=== PATIENT | male | born 1990 | race Caucasian/White ===

== ENCOUNTER 2018-11-02 12:19 | Day surgery (SDC) | payer SELFPAY ==
[~2018-11-02 12:19] MED LIST: Bupivacaine 0.25%/EPINEPHrine 1:200,000 10 ML SDV INJECT ONE; Lactated Ringers 1,000 ML IV SCH; ceFAZolin 2 GM in Premix Bag 1 BAG IV ONE
[2018-11-02] MEDS ORDERED: Bupivacaine 25%/EPINEPHrine/PF 30 ML ONE (12:30)
[2018-11-02] MEDS ORDERED: Midazolam 1 MG/ML 2 ML SDV ONE (13:01)
[2018-11-02] MEDS ORDERED: Propofol 200 MG/20 ML SDV ONE (13:02)
--- NOTE | 2018-11-02 13:22 | PCM.PREANE ---
Preanesthetic Assessment - Anesthesia/Transfusion/Family Hx Anesthesia History: Prior Anesthesia Without Reaction (appy and Right upper ( lung) lobectomy due to trauma in 2011.) Family History of Anesthesia Reaction: No Transfusion History: No Prior Transfusion(s) - Review of Systems General: No Symptoms (overweight) Pulmonary: No Symptoms (smokes e cigs. quit smoking cigareettes 2010 after lung lobectomy. Denies any pulmonary symptoms or SOB or asthma or emphysema. Says physical activity is NOT limited by sob.) Cardiovascular: No Symptoms Gastrointestinal: No Symptoms Neurological: No Symptoms Other: Reports: None (drinks 2-3 beers per night. Obese.) - Physical Assessment NPO Status Date: 11/02/18 NPO Status Time: 08:00 (one can [place]) Pulse: 56 O2 Sat by Pulse Oximetry: 98 Respiratory Rate: 16 Blood Pressure: 149/71 Temperature: 37.3 C Vital Signs: Last Vital Signs Temp 37.3 C 11/02/18 13:16 Pulse 56 L 11/02/18 13:16 Resp 16 11/02/18 13:16 BP 149/71 H 11/02/18 13:16 Pulse Ox 98 11/02/18 13:16 Height: 1.91 m Weight: 129.274 kg ASA Class: 2 Mental Status: Alert & Oriented x3 Airway Class: Mallampati = 1 Dentition: Reports: Broken Tooth/Teeth (right upper front tooth broken/cracked) Thyro-Mental Finger Breadths: 2 Mouth Opening Finger Breadths: 3 ROM/Head Extension: Full Lungs: Clear to Auscultation, Normal Respiratory Effort Cardiovascular: Regular Rate, Regular Rhythm, No Murmurs - Allergies Allergies/Adverse Reactions: Allergies Allergy/AdvReac Type Severity Reaction Status Date / Time No Known Allergies Allergy Verified 10/31/18 07:54 - Blood Blood Available: No Product(s) Available: None - Anesthesia Plan Pre-Op Medication Ordered: None - Acknowledgements Anesthesia Type Planned: MAC (MAC discusssed. all questions answered. GA backup. Consent signed. 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 [No Known Home Meds] 10/31/18 [History] - CURRENT (IN HOUSE) MEDS Current Meds: Current Medications Lactated Ringer's (Ringers, Lactated) 1,000 mls @ 125 mls/hr IV ASDIRECTED SUSY Discontinued Medications Bupivacaine HCl/Epinephrine Bitart (Marcaine 0.25%/Epinephrine 1:200,000) 10 ml INJECT ONETIME ONE Stop: 11/02/18 08:01 Cefazolin Sodium/Dextrose 2 gm (/ Premix) 50 mls @ 100 mls/hr IV ONETIME ONE Stop: 11/02/18 08:29 Bupivacaine HCl/Epinephrine Bitart (Sensorc Mpf 0.25%-Epi [id number]) Confirm Administered Dose 30 mls @ as directed .ROUTE .STK-MED ONE Stop: 11/02/18 12:31 Lidocaine HCl (Xylocaine-Mpf 1%) Confirm Administered Dose 5 mls @ as directed .ROUTE .STK-MED ONE Stop: 11/02/18 13:03 Midazolam HCl (Versed 1 Mg/Ml) Confirm Administered Dose 2 mg .ROUTE .STK-MED ONE Stop: 11/02/18 13:02 Propofol (Diprivan 20 Ml) Confirm Administered Dose 200 mg .ROUTE .STK-MED ONE Stop: 11/02/18 13:03
[2018-11-02] MEDS ORDERED: Ondansetron 4 MG/2 ML SDV IVPUSH ONE (13:23)
[2018-11-02] MEDS ORDERED: fentaNYL 100 MCG/2 ML SDV IVPUSH PRN (13:23)
[2018-11-02] MEDS ORDERED: ceFAZolin 1 GM Vial ONE ×2 (13:29)
[2018-11-02] MEDS ORDERED: Sodium Chloride 0.9% 20 ML ONE (13:29)
--- NOTE | 2018-11-02 14:27 | PCM.POSTAN ---
POST ANESTHESIA ASSESSMENT - MENTAL STATUS Mental Status: Alert, Oriented - VITAL SIGNS Pulse Rate: 60 SaO2: 99 Resp Rate: 20 Blood Pressure: 120/63 Temperature: 37.1 C - RESPIRATORY Respiratory Status: Respiratory Rate WNL, Airway Patent, O2 Saturation Stable - CARDIOVASCULAR CV Status: Pulse Rate WNL, Blood Pressure Stable - GASTROINTESTINAL GI Status: No Symptoms - PAIN Pain Score: 0 (no pain, no nausea) - POST OP HYDRATION Hydration Status: Adequate & Stable
--- NOTE | 2018-11-02 14:29 | PCM48HPAN ---
Post Anesthesia Note - EVALUATION WITHIN 48HRS OF ANESTHETIC Vital Signs in Normal Range: Yes Patient Participated in Evaluation: Yes Respiratory Function Stable: Yes Airway Patent: Yes Cardiovascular Function Stable: Yes Hydration Status Stable: Yes Pain Control Satisfactory: Yes Nausea and Vomiting Control Satisfactory: Yes Mental Status Recovered: Yes Pulse Rate: 60 Resp Rate: 20 Temperature: 37.1 C Blood Pressure: 120/63 - COMMENTS/OBSERVATIONS Free Text/Narrative:: awake and alert. ready to go home.
--- NOTE | 2018-11-02 15:00 | PCM.OPNOTE ---
- General Post-Op/Procedure Note Date of Surgery/Procedure: 11/02/18 Operative Procedure(s): right carpal tunnel release Pre Op Diagnosis: right carpal tunnel syndrome Post-Op Diagnosis: Same Anesthesia Technique: Local, MAC Primary Surgeon: Julieta Foster Complications: None Condition: Good
--- NOTE | 2018-11-05 19:49 | OR ---
SURGEON: ANIYA CRAWFORD MD DATE OF PROCEDURE: 11/02/2018 PREOPERATIVE DIAGNOSIS: Right carpal tunnel syndrome. POSTOPERATIVE DIAGNOSIS: Right carpal tunnel syndrome. PROCEDURES: Right carpal tunnel release. AIRLINE PILOT: None. ANESTHESIA: Local MAC. INDICATIONS: Mr. Morgan is a 28-year-old gentleman seen today for right carpal tunnel release. He does have bilateral symptoms. We will proceed with right eye first. Risks were including, but not limited to, bleeding, infection, damage to underlying or overlying structures, possible need for future interventions, possible scarring. He has failed conservative management and would like to proceed. PROCEDURE IN DETAIL: After informed consent was obtained and placed on the chart, the patient was brought to the operating theater in supine position. After adequate local MAC anesthesia was obtained, the area was prepped and draped and time-out was completed to confirm side and site. A 15 blade was used to dissect through the skin subcutaneous tissues after adequate anesthesia and the tourniquet had been insufflated to 200 mmHg. Once breach of the ligament. Dissection was then carried distally and proximally under direct visualization using a Littler scissor for complete release. He had point lengthy ligament. Once adequately released, a small amount of neurolysis was performed on the nerve due to scar tissue forming around it. The area was copiously irrigated and skin was closed using a 5-0 nylon stitch in a horizontal mattress fashion. Once adequately closed, the wound was dressed with Xeroform fluffs and a Kerlix gauze dressing and 2-inch Jackson wrap. The patient tolerated this well. All counts needles were correct at the end of case. FOLLOWUP INSTRUCTIONS: The patient will see us in 2 weeks for suture removal, sooner if any problems, questions, or concerns. HEGGTROSALVA / SYL /[id number]
== END 2018-11-02 15:02 | disposition home or self-care (01) ==
LOC: MW.SDS 12:19
PROVIDERS: ATTEND Plastic Surgery
DX: G56.01 Carpal tunnel syndrome, right upper limb (principal); E66.9 Obesity, unspecified; Z87.891 Personal history of nicotine dependence; Z68.35 Body mass index [BMI] 35.0-35.9, adult
CPT/HCPCS: 64721; J0690; J2250; J2704; J7120

== ENCOUNTER 2018-12-05 06:18 | Day surgery (SDC) | payer SELFPAY ==
--- NOTE | 2018-12-05 07:04 | PCM.PREANE ---
Preanesthetic Assessment - Anesthesia/Transfusion/Family Hx Anesthesia History: Prior Anesthesia Without Reaction Family History of Anesthesia Reaction: No Transfusion History: No Prior Transfusion(s) - Review of Systems General: No Symptoms Pulmonary: No Symptoms Cardiovascular: No Symptoms Gastrointestinal: No Symptoms Neurological: No Symptoms Other: Reports: None - Physical Assessment NPO Status Date: 11/21/18 Height: 6 ft 3 in Weight: 129.274 kg ASA Class: 1 Mental Status: Alert & Oriented x3 Airway Class: Mallampati = 1 Dentition: Reports: Normal Dentition ROM/Head Extension: Full Lungs: Clear to Auscultation, Normal Respiratory Effort Cardiovascular: Regular Rate, Regular Rhythm - Allergies Allergies/Adverse Reactions: Allergies Allergy/AdvReac Type Severity Reaction Status Date / Time No Known Allergies Allergy Verified 12/03/18 07:30 - Blood Blood Available: No - Anesthesia Plan Pre-Op Medication Ordered: None - Acknowledgements Anesthesia Type Planned: MAC Pt an Appropriate Candidate for the Planned Anesthesia: Yes Alternatives and Risks of Anesthesia Discussed w Pt/Guardian: Yes Pt/Guardian Understands and Agrees with Anesthesia Plan: Yes Additional Comments: other CTR done several weeks ago PreAnesthesia Questionnaire Respiratory History: Reports: Other (See Below) Gastrointestinal History: Reports: None Musculoskeletal History: Reports: None Endocrine/Metabolic History: Reports: Obesity/BMI 30+ - Past Surgical History Head Surgeries/Procedures: Reports: None Respiratory Surgical History: Reports: Other (See Below) Other Respiratory Surgeries/Procedures: 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 [No Known Home Meds] 12/03/18 [History] - CURRENT (IN HOUSE) MEDS Current Meds: Current Medications Hydrocodone Bitart/Acetaminophen ([place] 325-5 Mg) 1 tab PO Q4H PRN PRN Reason: Pain Bupivacaine HCl/Epinephrine Bitart (Marcaine 0.25%/Epinephrine 1:200,000) 10 ml INJECT ONETIME ONE Stop: 12/05/18 08:01 Cefazolin Sodium/Dextrose 2 gm (/ Premix) 50 mls @ 100 mls/hr IV ONETIME ONE Stop: 12/05/18 08:29 Lactated Ringer's (Ringers, Lactated) 1,000 mls @ 125 mls/hr IV ASDIRECTED SUSY
[2018-12-05] MEDS ORDERED: Scopolamine 1.5 MG Transdermal Patch TRDERM PRN (07:12)
[2018-12-05] MEDS ORDERED: fentaNYL 100 MCG/2 ML SDV ONE (07:16)
[2018-12-05] MEDS ORDERED: Midazolam 1 MG/ML 2 ML SDV ONE (07:16)
[2018-12-05] MEDS ORDERED: Propofol 200 MG/20 ML SDV ONE (07:16)
[2018-12-05] MEDS ORDERED: Bupivacaine 0.25%/EPINEPHrine 1:200,000 10 ML SDV ONE (07:32)
[2018-12-05] MEDS ORDERED: Lactated Ringers 1,000 ML IV SCH (08:00)
[2018-12-05] MEDS ORDERED: Acetaminophen/HYDROcodone 325-5 MG Tab PO PRN (08:00)
[2018-12-05] MEDS ORDERED: Bupivacaine 0.25%/EPINEPHrine 1:200,000 10 ML SDV INJECT ONE (08:00)
[2018-12-05] MEDS ORDERED: ceFAZolin 2 GM in Premix Bag 1 BAG IV ONE (08:00)
[2018-12-05] MEDS ORDERED: ceFAZolin 1 GM Vial ONE (08:18)
[2018-12-05] MEDS ORDERED: Sodium Chloride 0.9% 20 ML ONE (08:18)
--- NOTE | 2018-12-05 09:41 | PCM48HPAN ---
Post Anesthesia Note - EVALUATION WITHIN 48HRS OF ANESTHETIC Vital Signs in Normal Range: Yes Patient Participated in Evaluation: Yes Respiratory Function Stable: Yes Airway Patent: Yes Cardiovascular Function Stable: Yes Hydration Status Stable: Yes Pain Control Satisfactory: Yes Nausea and Vomiting Control Satisfactory: Yes Mental Status Recovered: Yes Resp Rate: 14 - COMMENTS/OBSERVATIONS Free Text/Narrative:: direct to phae 2, discharged by nurses prior to being seen by me by criteria
--- NOTE | 2018-12-08 07:29 | PCM.OPNOTE ---
- General Post-Op/Procedure Note Date of Surgery/Procedure: 12/05/18 Operative Procedure(s): left carpal tunnel release Pre Op Diagnosis: left carpal tunnel syndrome Post-Op Diagnosis: Same Anesthesia Technique: Local, MAC Primary Surgeon: Julieta Foster User Experience Lead: Nora Carr Complications: None Condition: Good
--- NOTE | 2018-12-10 23:37 | OR ---
SURGEON: ANIYA CRAWFORD MD DATE OF PROCEDURE: 12/05/2018 PREOPERATIVE DIAGNOSIS: Left carpal tunnel syndrome. POSTOPERATIVE DIAGNOSIS: Left carpal tunnel syndrome. PROCEDURE: Left carpal tunnel release. APPLICATOR SPRAYER: TOREY Cordero. ANESTHESIA: Local MAC. INDICATIONS: Mr. Morgan is a 28-year-old gentleman seen today in evaluation for a left carpal tunnel release. He has previously had a right carpal tunnel release several weeks ago and has done very well with this. Risks and benefits were discussed including, but not limited to, bleeding, infection, damage to underlying or overlying structures, possible need for future interventions, and possible scarring. PROCEDURE IN DETAIL: After informed consent was obtained and placed on the chart, the patient was brought to the operating theater and laid in supine position. After adequate local MAC anesthesia was obtained, the area was prepped and draped and a time- out was completed to confirm side and site. Marcaine 0.25% with epinephrine was injected into the area in a field block and the arm was exsanguinated and tourniquet was insufflated to 200 mmHg. A dissection was carried over the transverse carpal ligament first using a #15 blade through the skin until breach of the ligament. Direct visualization was then used for distal and proximal dissection using a Littler scissor. Once adequately released under direct visualization, the area was copiously irrigated and normal saline was used to irrigate this. The wound was closed using 5-0 nylon stitch in a horizontal mattress fashion. The wound was dressed with Xeroform, fluffs, and a Kerlix gauze dressing and a 2-inch Jackson wrap. The patient tolerated this well. All counts and needles were correct at the end of the case. FOLLOWUP INSTRUCTIONS: The patient will see us in 10 to 14 days, sooner if any problems, questions, or concerns. He was given a prescription for [place] as needed. HEGGTHE / MODL /[id number]
== END 2018-12-05 08:50 | disposition home or self-care (01) ==
LOC: MW.SDS 06:18
PROVIDERS: ATTEND Plastic Surgery
DX: G56.02 Carpal tunnel syndrome, left upper limb (principal); E66.9 Obesity, unspecified; Z98.890 Other specified postprocedural states; Z87.891 Personal history of nicotine dependence; Z68.36 Body mass index [BMI] 36.0-36.9, adult
CPT/HCPCS: 64721; J0690; J2250; J2704; J3010; J3490; J7120; 01810